=== PATIENT | male | born 1960 | race African-American/Black ===

== ENCOUNTER 2017-07-22 21:59 | Emergency (ER) | payer OTHER ==
[~2017-07-22] VITALS: Ht 170.2 cm; Wt 91.0 kg
[2017-07-23 04:45] VITALS: BP 110/70
== END 2017-07-23 05:30 | disposition left against medical advice (07) ==
LOC: ER 22:21
DX: R11.10 Vomiting, unspecified (principal); F10.129 Alcohol abuse with intoxication, unspecified; G40.909 Epilepsy, unspecified, not intractable, without status epilepticus; F17.200 Nicotine dependence, unspecified, uncomplicated; F12.10 Cannabis abuse, uncomplicated
CPT/HCPCS: 99283; Z7610

== ENCOUNTER 2017-08-25 09:34 | Emergency (ER) | payer OTHER | END 2017-08-25 10:32 | disposition left against medical advice (07) | LOC: ER 09:34 | DX: Z53.21 Procedure and treatment not carried out due to patient leaving prior to being seen by health care provider (principal) ==

== ENCOUNTER 2017-11-01 12:12 | Emergency (ER) | payer OTHER ==
[~2017-11-01] VITALS: Ht 175.3 cm; Wt 75.0 kg
[2017-11-01] MEDS ORDERED: SODIUM CHLORIDE 0.9% 1,000 ML IV ONE (12:39)
[2017-11-01] MEDS ORDERED: IBUPROFEN 600MG TABLET PO ONE (12:45)
[2017-11-01] MEDS ORDERED: LORAZEPAM 2MG/ML CPJ IV ONE (12:45)
[2017-11-01] MEDS ORDERED: LEVETIRACETAM 500MG PREMIX 100 ML IV ONE (12:45)
[2017-11-01 13:04] LABS: BASOPHILS % 0.9 % (0.0-2.0); EOSINOPHILS % 0.8 % (0.0-5.0); HEMATOCRIT. 38.8 % (42.0-52.0); HEMOGLOBIN. 13.2 g/dL (14.0-18.0); MEAN CORPUSCULAR HEMOGLOBIN 35.3 pg (28.0-32.0); MEAN CORPUSCULAR VOLUME 103.9 fL (80.0-94.0); MEAN PLATELET VOLUME 7.9 fl (7.4-10.4); MONOCYTES % 9.4 % (2.0-8.0); NEUTROPHILS % 58.9 % (40.0-76.0); PLATELET 198 x1000/uL (130-400); RED BLOOD CELL COUNT 3.73 mill/uL (4.7-6.1)
[2017-11-01 13:08] LABS: CHLORIDE 104 mEq/L (98-107)
[2017-11-01 13:12] LABS: ETHANOL BLOOD 95 mg/dL
[2017-11-01 13:17] LABS: CREATINE KINASE 177 IU/L (39-308)
[2017-11-01 13:23] LABS: CARBAMAZEPINE < 0.5 ug/mL (4-12); PHENOBARBITAL < 2.1 ug/mL (15.0-40.0); VALPROIC ACID < 3.0 ug/mL (50-100)
[2017-11-01 21:35] VITALS: BP 124/85
== END 2017-11-01 21:45 | disposition home or self-care (01) ==
LOC: ER 12:13
DX: G40.909 Epilepsy, unspecified, not intractable, without status epilepticus (principal); S93.401A Sprain of unspecified ligament of right ankle, initial encounter; F10.10 Alcohol abuse, uncomplicated; Y90.4 Blood alcohol level of 80-99 mg/100 ml; R94.31 Abnormal electrocardiogram [ECG] [EKG]; F12.10 Cannabis abuse, uncomplicated; Z91.19 Patient's noncompliance with other medical treatment and regimen; W01.0XXA Fall on same level from slipping, tripping and stumbling without subsequent striking against object, initial encounter; Y93.89 Activity, other specified; Y92.488 Other paved roadways as the place of occurrence of the external cause
CPT/HCPCS: 36415; 73610; 80053; 80156; 80165; 80184; 80185; 82550; 84443; 84484; 85025; 93005; 96365; 96375; 99285; G0482; J1953; J2060; J7030

== ENCOUNTER 2018-05-29 09:33 | Emergency (ER) | payer OTHER ==
[~2018-05-29] VITALS: Ht 182.9 cm; Wt 90.0 kg
[2018-05-29] MEDS ORDERED: SODIUM CHLORIDE 0.9% 1,000 ML IV ONE (10:30)
[2018-05-29] MEDS ORDERED: LORAZEPAM 2MG/ML CPJ IV ONE (11:00)
[2018-05-29 11:49] LABS: CLARITY URINE CLEAR (CLEAR); COLOR URINE YELLOW (YELLOW); KETONES URINE NEGATIVE (NEGATIVE); LEUKOCYTE ESTERASE URINE TRACE (NEGATIVE); NITRITE URINE NEGATIVE (NEGATIVE); OCCULT BLOOD URINE NEGATIVE (NEGATIVE); PH URINE 6.5 (4.5-8.0); PROTEIN URINE 1+ (NEGATIVE); SPECIFIC GRAVITY URINE 1.013 (1.005-1.030)
[2018-05-29 11:49] LABS: BASOPHILS % 0.7 % (0.0-2.0); EOSINOPHILS % 1.3 % (0.0-5.0); HEMATOCRIT. 40.3 % (42.0-52.0); HEMOGLOBIN. 13.6 g/dL (14.0-18.0); LYMPHOCYTES % 61.1 % (20.0-50.0); MEAN CORPUSCULAR HEMOGLOBIN 34.8 pg (28.0-32.0); MEAN CORPUSCULAR VOLUME 103.4 fL (80.0-94.0); MONOCYTES % 10.3 % (2.0-8.0); NEUTROPHILS % 26.6 % (40.0-76.0); PLATELET 268 x1000/uL (130-400); RED CELL DISTRIBUTION WIDTH 13.5 % (11.6-14.6)
[2018-05-29 11:56] LABS: CHLORIDE 100 mEq/L (98-107)
[2018-05-29 12:03] LABS: ETHANOL BLOOD < 10 mg/dL
[2018-05-29 12:20] LABS: PHENCYCLIDINE URINE SCREEN NEGATIVE (NEGATIVE)
[2018-05-29 12:21] LABS: *BARBITURATES SCREEN URINE NEGATIVE (NEGATIVE); *BENZODIAZEPINES SCREEN URINE NEGATIVE (NEGATIVE); *COCAINE SCREEN URINE NEGATIVE (NEGATIVE); CANNABINOID URINE SCREEN NEGATIVE (NEGATIVE); METHADONE URINE SCREEN NEGATIVE (NEGATIVE); OPIATES URINE SCREEN NEGATIVE (NEGATIVE)
[2018-05-29 12:22] LABS: *AMPHETAMINES SCREEN URINE NEGATIVE (NEGATIVE)
[2018-05-29] MEDS ORDERED: PHENYTOIN SODIUM 500 MG in SODIUM CHLORIDE 0.9% 50 ML IV ONE (14:00)
[2018-05-30 13:55] VITALS: BP 111/69
== END 2018-05-30 13:56 | disposition home or self-care (01) ==
LOC: ER 09:57
DX: R56.9 Unspecified convulsions (principal); F17.200 Nicotine dependence, unspecified, uncomplicated
CPT/HCPCS: 36415; 70450; 80053; 80185; 80305; 81003; 85025; 85610; 87186; 96365; 96366; 96375; 99284; J1165; J2060; J7030; Z7610

== ENCOUNTER 2019-02-23 08:17 | Emergency (ER) | payer OTHER ==
[~2019-02-23] VITALS: Ht 172.7 cm; Wt 73.0 kg
[2019-02-23 10:36] VITALS: BP 137/82
== END 2019-02-23 10:39 | disposition home or self-care (01) ==
LOC: ER 08:17
DX: R56.9 Unspecified convulsions (principal)
CPT/HCPCS: 99283

== ENCOUNTER 2019-03-06 08:41 | Emergency (ER) | payer OTHER ==
[~2019-03-06] VITALS: Ht 182.9 cm; Wt 85.0 kg
[2019-03-06 08:59] VITALS: BP 140/80
== END 2019-03-06 10:59 | disposition home or self-care (01) ==
LOC: ER 08:41
DX: F10.129 Alcohol abuse with intoxication, unspecified (principal); Y90.9 Presence of alcohol in blood, level not specified; R03.0 Elevated blood-pressure reading, without diagnosis of hypertension; R90.82 White matter disease, unspecified; Z91.81 History of falling
CPT/HCPCS: 70450; 99284; Z7610

== ENCOUNTER 2019-03-17 12:42 | Emergency (ER) | payer OTHER ==
[~2019-03-17] VITALS: Ht 177.8 cm; Wt 82.0 kg
[2019-03-17 14:16] LABS: BASOPHILS % 1.3 % (0.0-2.0); EOSINOPHILS % 0.8 % (0.0-5.0); HEMATOCRIT. 36.7 % (42.0-52.0); HEMOGLOBIN. 12.6 g/dL (14.0-18.0); LYMPHOCYTES % 39.2 % (20.0-50.0); MEAN CORPUSCULAR HEMOGLOBIN 34.9 pg (28.0-32.0); MEAN CORPUSCULAR VOLUME 101.2 fL (80.0-94.0); MEAN PLATELET VOLUME 7.5 fl (7.4-10.4); MONOCYTES % 12.2 % (2.0-8.0); NEUTROPHILS % 46.5 % (40.0-76.0); PLATELET 365 x1000/uL (130-400); RED BLOOD CELL COUNT 3.62 mill/uL (4.7-6.1); RED CELL DISTRIBUTION WIDTH 14.7 % (11.6-14.6)
[2019-03-17 14:23] LABS: CHLORIDE 103 mEq/L (98-107)
[2019-03-17 15:33] LABS: ETHANOL BLOOD < 10 mg/dL
[2019-03-17] MEDS ORDERED: PHENYTOIN 100 MG/4 ML UDC PO ONE (15:45)
[2019-03-17] MEDS ORDERED: PHENYTOIN SODIUM EXTENDED 100MG CAPSULE PO ONE (15:45)
[2019-03-18 11:25] VITALS: BP 98/62
== END 2019-03-18 11:30 | disposition home or self-care (01) ==
LOC: ER 12:42
DX: G40.909 Epilepsy, unspecified, not intractable, without status epilepticus (principal)
CPT/HCPCS: 36415; 80185; 80320; 99283; G0480

== ENCOUNTER 2019-04-04 11:45 | Emergency (ER) | payer OTHER ==
[~2019-04-04] VITALS: Ht 175.3 cm; Wt 82.0 kg
[2019-04-04 13:10] LABS: CLARITY URINE CLEAR (CLEAR); COLOR URINE YELLOW (YELLOW); KETONES URINE NEGATIVE (NEGATIVE); LEUKOCYTE ESTERASE URINE TRACE (NEGATIVE); NITRITE URINE NEGATIVE (NEGATIVE); OCCULT BLOOD URINE NEGATIVE (NEGATIVE); PROTEIN URINE NEGATIVE (NEGATIVE); SPECIFIC GRAVITY URINE 1.002 (1.005-1.030); UROBILINOGEN URINE 0.2 E.U./dL (0.2-1.0)
[2019-04-04 13:27] LABS: *AMPHETAMINES SCREEN URINE NEGATIVE (NEGATIVE); *BARBITURATES SCREEN URINE NEGATIVE (NEGATIVE); *BENZODIAZEPINES SCREEN URINE NEGATIVE (NEGATIVE); *COCAINE SCREEN URINE NEGATIVE (NEGATIVE); CANNABINOID URINE SCREEN NEGATIVE (NEGATIVE); METHADONE URINE SCREEN NEGATIVE (NEGATIVE); OPIATES URINE SCREEN NEGATIVE (NEGATIVE); PHENCYCLIDINE URINE SCREEN NEGATIVE (NEGATIVE)
[2019-04-04 14:31] LABS: BASOPHILS % 0.8 % (0.0-2.0); EOSINOPHILS % 1.6 % (0.0-5.0); HEMATOCRIT. 38.5 % (42.0-52.0); HEMOGLOBIN. 13.5 g/dL (14.0-18.0); MEAN CORPUSCULAR VOLUME 100.3 fL (80.0-94.0); MEAN PLATELET VOLUME 7.7 fl (7.4-10.4); MONOCYTES % 9.7 % (2.0-8.0); NEUTROPHILS % 67.9 % (40.0-76.0); PLATELET 268 x1000/uL (130-400); RED BLOOD CELL COUNT 3.84 mill/uL (4.7-6.1); RED CELL DISTRIBUTION WIDTH 13.4 % (11.6-14.6)
[2019-04-04 14:35] LABS: CHLORIDE 94 mEq/L (98-107)
[2019-04-04 14:38] LABS: ETHANOL BLOOD < 10 mg/dL
[2019-04-04] MEDS ORDERED: PHENYTOIN SODIUM 1,000 MG in SODIUM CHLORIDE 0.9% 100 ML IV ONE (15:30)
[2019-04-04 15:54] VITALS: BP 123/71
[2019-04-04] MEDS ORDERED: PHENYTOIN SODIUM EXTENDED 100MG CAPSULE PO ONE (16:00)
== END 2019-04-04 17:49 | disposition home or self-care (01) ==
LOC: ER 12:07
DX: F10.229 Alcohol dependence with intoxication, unspecified (principal); R89.2 Abnormal level of other drugs, medicaments and biological substances in specimens from other organs, systems and tissues; Y90.0 Blood alcohol level of less than 20 mg/100 ml
CPT/HCPCS: 36415; 80185; 80305; 80320; 81003; 99283; J1165; J7050; G0480

== ENCOUNTER 2019-04-06 19:15 | Inpatient (IN) | payer OTHER ==
[~2019-04-06] VITALS: Ht 172.7 cm; Wt 75.4 kg
[2019-04-06] MEDS ORDERED: SODIUM CHLORIDE 0.9% 1,000 ML IV ONE (20:20)
[2019-04-06] MEDS ORDERED: LEVETIRACETAM 500MG PREMIX 100 ML IV ONE (20:30)
[2019-04-06] MEDS ORDERED: FOLIC ACID 1 MG, THIAMINE HCL 100 MG, MVI, ADULT NO.1 10 ML in DEXTROSE 5% WATER 1,000 ML IV ONE ×4 (20:30)
[2019-04-06] MEDS ORDERED: LORAZEPAM 2MG/ML CPJ IV PRN (20:30)
[2019-04-06] MEDS ORDERED: LORAZEPAM 2MG/ML CPJ IM ONE (21:30)
[2019-04-06] MEDS ORDERED: OLANZAPINE 10 MG/VIAL IM ONE (21:30)
[2019-04-06 22:16] LABS: CLARITY URINE CLOUDY (CLEAR); COLOR URINE YELLOW (YELLOW); KETONES URINE NEGATIVE (NEGATIVE); LEUKOCYTE ESTERASE URINE 2+ (NEGATIVE); NITRITE URINE NEGATIVE (NEGATIVE); OCCULT BLOOD URINE NEGATIVE (NEGATIVE); PH URINE 5.5 (4.5-8.0); PROTEIN URINE NEGATIVE (NEGATIVE); UROBILINOGEN URINE 0.2 E.U./dL (0.2-1.0)
[2019-04-06 22:27] LABS: *BARBITURATES SCREEN URINE NEGATIVE (NEGATIVE)
[2019-04-06 22:28] LABS: *AMPHETAMINES SCREEN URINE NEGATIVE (NEGATIVE); *BENZODIAZEPINES SCREEN URINE NEGATIVE (NEGATIVE); *COCAINE SCREEN URINE NEGATIVE (NEGATIVE); METHADONE URINE SCREEN NEGATIVE (NEGATIVE); OPIATES URINE SCREEN NEGATIVE (NEGATIVE); PHENCYCLIDINE URINE SCREEN NEGATIVE (NEGATIVE)
[2019-04-06 22:29] LABS: CANNABINOID URINE SCREEN NEGATIVE (NEGATIVE)
[2019-04-06 23:47] LABS: BASOPHILS % 1.2 % (0.0-2.0); EOSINOPHILS % 1.8 % (0.0-5.0); HEMATOCRIT. 30.1 % (42.0-52.0); HEMOGLOBIN. 10.4 g/dL (14.0-18.0); LYMPHOCYTES % 53.7 % (20.0-50.0); MEAN CORPUSCULAR HEMOGLOBIN 35.4 pg (28.0-32.0); MEAN CORPUSCULAR VOLUME 102.4 fL (80.0-94.0); MEAN PLATELET VOLUME 7.3 fl (7.4-10.4); MONOCYTES % 7.7 % (2.0-8.0); NEUTROPHILS % 35.6 % (40.0-76.0); PLATELET 223 x1000/uL (130-400); RED BLOOD CELL COUNT 2.94 mill/uL (4.7-6.1); RED CELL DISTRIBUTION WIDTH 13.9 % (11.6-14.6)
[2019-04-07] VITALS (9 sets, daily range): BP systolic 90–137; BP diastolic 52–84
[2019-04-07] MEDS ORDERED: CEFTRIAXONE 1 G PREMIX 50 ML IV ONE
[2019-04-07 00:05] LABS: CHLORIDE 103 mEq/L (98-107)
[2019-04-07 00:10] LABS: ETHANOL BLOOD 157 mg/dL
[2019-04-07 00:14] LABS: CREATINE KINASE 191 IU/L (39-308)
[2019-04-07 00:21] LABS: CARBAMAZEPINE < 0.5 ug/mL (4-12); PHENOBARBITAL < 2.1 ug/mL (15.0-40.0); VALPROIC ACID < 3.0 ug/mL (50-100)
[2019-04-07] MEDS ORDERED: LEVETIRACETAM 500 MG in SODIUM CHLORIDE 0.9% 100 ML IV SCH (05:30)
[2019-04-07] MEDS ORDERED: LORAZEPAM 2MG/ML CPJ IV PRN (05:30)
[2019-04-07] MEDS ORDERED: ACETAMINOPHEN 325MG TABLET PO PRN (05:30)
[2019-04-07] MEDS: SODIUM CHLORIDE 0.9% 1,000 ML IV SCH ×2 (05:30→16:18)
[2019-04-07] MEDS ORDERED: ONDANSETRON HCL 4MG/2ML INJ IV PRN (05:30)
[2019-04-07] MEDS: CHLORDIAZEPOXIDE 5 MG CAPSULE PO SCH ×3 (06:00→20:52)
[2019-04-07] MEDS: MULTIVITAMINS,THER W-MINERALS TABLET PO SCH (09:00)
[2019-04-07] MEDS: ENOXAPARIN 40MG/0.4ML SYR SUBCUT SCH (09:00)
[2019-04-07] MEDS: THIAMINE HCL 100MG TABLET PO SCH (09:00)
[2019-04-07] MEDS: FOLIC ACID 1MG TABLET PO SCH (09:00)
[2019-04-07] MEDS: LEVETIRACETAM 500MG PREMIX 100 ML IV SCH ×2 (09:25→20:51)
[2019-04-07 10:28] LABS: BASOPHILS % 1.1 % (0.0-2.0); EOSINOPHILS % 1.9 % (0.0-5.0); HEMOGLOBIN. 11.7 g/dL (14.0-18.0); LYMPHOCYTES % 40.7 % (20.0-50.0); MEAN CORPUSCULAR HEMOGLOBIN 34.9 pg (28.0-32.0); MEAN PLATELET VOLUME 7.3 fl (7.4-10.4); MONOCYTES % 12.7 % (2.0-8.0); NEUTROPHILS % 43.6 % (40.0-76.0); PLATELET 235 x1000/uL (130-400); RED BLOOD CELL COUNT 3.34 mill/uL (4.7-6.1); RED CELL DISTRIBUTION WIDTH 14.2 % (11.6-14.6)
[2019-04-07 10:35] LABS: CHLORIDE 105 mEq/L (98-107)
[2019-04-07 10:43] LABS: LDL CHOLESTEROL 71 mg/dL (5-100)
[2019-04-07 10:44] LABS: CREATINE KINASE 222 IU/L (39-308)
[2019-04-07 10:45] LABS: CREATINE KINASE MB FRACTION 5.6 ng/mL (0.5-3.6); HDL CHOLESTEROL 58 mg/dL (40-59)
[2019-04-07 20:39] LABS: CREATINE KINASE 182 IU/L (39-308)
[2019-04-07 20:40] LABS: CREATINE KINASE MB FRACTION 4.1 ng/mL (0.5-3.6)
[2019-04-07 20:41] LABS: *AMPHETAMINES SCREEN URINE NEGATIVE (NEGATIVE); *BARBITURATES SCREEN URINE NEGATIVE (NEGATIVE); CANNABINOID URINE SCREEN NEGATIVE (NEGATIVE); METHADONE URINE SCREEN NEGATIVE (NEGATIVE); OPIATES URINE SCREEN NEGATIVE (NEGATIVE); PHENCYCLIDINE URINE SCREEN NEGATIVE (NEGATIVE)
[2019-04-07 20:42] LABS: *BENZODIAZEPINES SCREEN URINE NEGATIVE (NEGATIVE); *COCAINE SCREEN URINE NEGATIVE (NEGATIVE)
[2019-04-08] VITALS (11 sets, daily range): BP systolic 104–122; BP diastolic 58–84
[2019-04-08] MEDS: SODIUM CHLORIDE 0.9% 1,000 ML IV SCH ×3 (01:30→20:54)
[2019-04-08] MEDS: CHLORDIAZEPOXIDE 5 MG CAPSULE PO SCH ×3 (07:19→20:53)
[2019-04-08] MEDS: MULTIVITAMINS,THER W-MINERALS TABLET PO SCH (08:44)
[2019-04-08] MEDS: ENOXAPARIN 40MG/0.4ML SYR SUBCUT SCH (08:45)
[2019-04-08] MEDS: LEVETIRACETAM 500MG PREMIX 100 ML IV SCH (08:45)
[2019-04-08] MEDS: THIAMINE HCL 100MG TABLET PO SCH (08:45)
[2019-04-08] MEDS: FOLIC ACID 1MG TABLET PO SCH (08:45)
[2019-04-08] MEDS: PHENYTOIN SODIUM EXTENDED 100MG CAPSULE PO SCH ×2 (13:59→20:54)
[2019-04-09] VITALS (12 sets, daily range): BP systolic 94–131; BP diastolic 29–89
[2019-04-09] MEDS: PHENYTOIN SODIUM EXTENDED 100MG CAPSULE PO SCH (06:05)
[2019-04-09] MEDS: CHLORDIAZEPOXIDE 5 MG CAPSULE PO SCH ×3 (06:06→21:00)
[2019-04-09 07:39] LABS: BASOPHILS % 0.7 % (0.0-2.0); EOSINOPHILS % 2.1 % (0.0-5.0); HEMATOCRIT. 30.8 % (42.0-52.0); HEMOGLOBIN. 10.6 g/dL (14.0-18.0); LYMPHOCYTES % 44.9 % (20.0-50.0); MEAN CORPUSCULAR HEMOGLOBIN 35.3 pg (28.0-32.0); MEAN CORPUSCULAR VOLUME 102.4 fL (80.0-94.0); MEAN PLATELET VOLUME 7.5 fl (7.4-10.4); MONOCYTES % 11.5 % (2.0-8.0); NEUTROPHILS % 40.8 % (40.0-76.0); PLATELET 223 x1000/uL (130-400); RED BLOOD CELL COUNT 3.01 mill/uL (4.7-6.1); RED CELL DISTRIBUTION WIDTH 14.2 % (11.6-14.6)
[2019-04-09 07:50] LABS: CHLORIDE 107 mEq/L (98-107)
[2019-04-09] MEDS: THIAMINE HCL 100MG TABLET PO SCH (08:59)
[2019-04-09] MEDS: FOLIC ACID 1MG TABLET PO SCH (08:59)
[2019-04-09] MEDS: MULTIVITAMINS,THER W-MINERALS TABLET PO SCH (08:59)
[2019-04-09] MEDS: ENOXAPARIN 40MG/0.4ML SYR SUBCUT SCH (09:00)
[2019-04-09] MEDS ORDERED: ENOXAPARIN 40MG/0.4ML SYR SUBCUT NR (10:30)
[2019-04-09 14:27] LABS: FOLIC ACID (FOLATE) SERUM >20 ng/mL ng/mL (>5.38)
[2019-04-09 14:37] LABS: VITAMIN B12 SERUM 289 pg/mL (211-911)
[2019-04-09 15:53] LABS: FERRITIN 86 ng/mL (22-322)
[2019-04-09] MEDS: SODIUM CHLORIDE 0.9% 1,000 ML IV SCH ×2 (18:08→18:10)
[2019-04-09] MEDS: LEVETIRACETAM 500MG TABLET PO SCH (21:00)
[2019-04-09] MEDS: ENOXAPARIN 80MG/0.8ML SYR SUBCUT SCH (21:00)
[2019-04-10] VITALS (7 sets, daily range): BP systolic 92–108; BP diastolic 52–71
[2019-04-10] MEDS: CHLORDIAZEPOXIDE 5 MG CAPSULE PO SCH ×3 (06:20→21:21)
[2019-04-10 08:07] LABS: PROTHROMBIN TIME 10.1 sec (9.6-11.0)
[2019-04-10] MEDS: LEVETIRACETAM 500MG TABLET PO SCH ×2 (10:12→21:21)
[2019-04-10] MEDS: FOLIC ACID 1MG TABLET PO SCH (10:13)
[2019-04-10] MEDS: MULTIVITAMINS,THER W-MINERALS TABLET PO SCH (10:13)
[2019-04-10] MEDS: THIAMINE HCL 100MG TABLET PO SCH (10:13)
[2019-04-10] MEDS: ENOXAPARIN 80MG/0.8ML SYR SUBCUT SCH ×2 (10:13→21:22)
[2019-04-10] MEDS: SODIUM CHLORIDE 0.9% 1,000 ML IV SCH (12:16)
[2019-04-11] VITALS: BP 104/66
[2019-04-11] MEDS: SODIUM CHLORIDE 0.9% 1,000 ML IV SCH ×2 (00:18→08:59)
[2019-04-11 04:00] VITALS: BP 117/48
[2019-04-11] MEDS: CHLORDIAZEPOXIDE 25MG CAPSULE PO SCH ×3 (06:27→21:03)
[2019-04-11 07:14] LABS: BASOPHILS % 0.8 % (0.0-2.0); EOSINOPHILS % 2.5 % (0.0-5.0); HEMATOCRIT. 31.1 % (42.0-52.0); HEMOGLOBIN. 10.9 g/dL (14.0-18.0); LYMPHOCYTES % 38.9 % (20.0-50.0); MEAN CORPUSCULAR HEMOGLOBIN 35.6 pg (28.0-32.0); MEAN CORPUSCULAR VOLUME 101.7 fL (80.0-94.0); MEAN PLATELET VOLUME 7.5 fl (7.4-10.4); NEUTROPHILS % 46.8 % (40.0-76.0); PLATELET 217 x1000/uL (130-400); RED BLOOD CELL COUNT 3.06 mill/uL (4.7-6.1); RED CELL DISTRIBUTION WIDTH 14.4 % (11.6-14.6)
[2019-04-11 07:24] LABS: CHLORIDE 109 mEq/L (98-107)
[2019-04-11 08:00] VITALS: BP 118/79
[2019-04-11] MEDS: FOLIC ACID 1MG TABLET PO SCH (08:59)
[2019-04-11] MEDS: ENOXAPARIN 80MG/0.8ML SYR SUBCUT SCH ×2 (08:59→21:04)
[2019-04-11] MEDS: MULTIVITAMINS,THER W-MINERALS TABLET PO SCH (08:59)
[2019-04-11] MEDS: LEVETIRACETAM 500MG TABLET PO SCH ×2 (08:59→21:03)
[2019-04-11] MEDS: THIAMINE HCL 100MG TABLET PO SCH (08:59)
[2019-04-11 12:00] VITALS: BP 101/71
[2019-04-11 16:00] VITALS: BP 94/59
[2019-04-11 20:00] VITALS: BP 95/56
[2019-04-12] VITALS: BP 93/63
[2019-04-12 04:00] VITALS: BP 110/69
[2019-04-12] MEDS: CHLORDIAZEPOXIDE 25MG CAPSULE PO SCH (05:38)
[2019-04-12 08:00] VITALS: BP 111/66
[2019-04-12 08:08] LABS: HEMATOCRIT. 31.9 % (42.0-52.0); HEMOGLOBIN. 10.9 g/dL (14.0-18.0); MEAN CORPUSCULAR HEMOGLOBIN 35.1 pg (28.0-32.0); MEAN CORPUSCULAR VOLUME 102.5 fL (80.0-94.0); MEAN PLATELET VOLUME 7.7 fl (7.4-10.4); PLATELET 232 x1000/uL (130-400); RED BLOOD CELL COUNT 3.11 mill/uL (4.7-6.1); RED CELL DISTRIBUTION WIDTH 14.6 % (11.6-14.6)
[2019-04-12 08:28] LABS: CHLORIDE 109 mEq/L (98-107)
[2019-04-12] MEDS: THIAMINE HCL 100MG TABLET PO SCH (09:35)
[2019-04-12] MEDS: ENOXAPARIN 80MG/0.8ML SYR SUBCUT SCH ×2 (09:35→21:06)
[2019-04-12] MEDS: FOLIC ACID 1MG TABLET PO SCH (09:35)
[2019-04-12] MEDS: LEVETIRACETAM 500MG TABLET PO SCH ×2 (09:35→21:05)
[2019-04-12] MEDS: MULTIVITAMINS,THER W-MINERALS TABLET PO SCH (09:35)
[2019-04-12 12:00] VITALS: BP 96/61
[2019-04-12 13:32] LABS: PLATELET ESTIMATE NORMAL
[2019-04-12 16:11] VITALS: BP 93/55
[2019-04-12 20:00] VITALS: BP 99/65
[2019-04-13] VITALS: BP 92/59
[2019-04-13 04:00] VITALS: BP 97/60
[2019-04-13 08:01] LABS: EOSINOPHILS % 2.6 % (0.0-5.0); HEMATOCRIT. 34.4 % (42.0-52.0); HEMOGLOBIN. 11.8 g/dL (14.0-18.0); LYMPHOCYTES % 49.6 % (20.0-50.0); MEAN CORPUSCULAR HEMOGLOBIN 35.3 pg (28.0-32.0); MEAN PLATELET VOLUME 7.8 fl (7.4-10.4); MONOCYTES % 14.1 % (2.0-8.0); NEUTROPHILS % 32.7 % (40.0-76.0); PLATELET 234 x1000/uL (130-400); RED BLOOD CELL COUNT 3.34 mill/uL (4.7-6.1); RED CELL DISTRIBUTION WIDTH 14.5 % (11.6-14.6)
[2019-04-13 08:16] LABS: CHLORIDE 106 mEq/L (98-107)
[2019-04-13] MEDS: THIAMINE HCL 100MG TABLET PO SCH (10:13)
[2019-04-13] MEDS: FOLIC ACID 1MG TABLET PO SCH (10:13)
[2019-04-13] MEDS: LEVETIRACETAM 500MG TABLET PO SCH ×2 (10:13→21:22)
[2019-04-13] MEDS: MULTIVITAMINS,THER W-MINERALS TABLET PO SCH (10:13)
[2019-04-13] MEDS: ENOXAPARIN 80MG/0.8ML SYR SUBCUT SCH (10:19)
[2019-04-13 20:00] VITALS: BP 93/57
[2019-04-14] VITALS: BP 95/49
[2019-04-14 04:00] VITALS: BP 105/63
[2019-04-14 08:00] VITALS: BP 95/55
[2019-04-14] MEDS: LEVETIRACETAM 500MG TABLET PO SCH ×2 (08:45→21:44)
[2019-04-14] MEDS: MULTIVITAMINS,THER W-MINERALS TABLET PO SCH (08:45)
[2019-04-14] MEDS: THIAMINE HCL 100MG TABLET PO SCH (08:45)
[2019-04-14] MEDS: FOLIC ACID 1MG TABLET PO SCH (08:45)
[2019-04-14 12:00] VITALS: BP 97/54
[2019-04-14 16:00] VITALS: BP 98/55
[2019-04-14 20:00] VITALS: BP 103/65
[2019-04-15] VITALS: BP 98/61
[2019-04-15 04:00] VITALS: BP 91/52
[2019-04-15 08:00] VITALS: BP 92/56
[2019-04-15] MEDS: LEVETIRACETAM 500MG TABLET PO SCH (10:11)
[2019-04-15] MEDS: MULTIVITAMINS,THER W-MINERALS TABLET PO SCH (10:12)
[2019-04-15] MEDS: THIAMINE HCL 100MG TABLET PO SCH (10:12)
[2019-04-15] MEDS: FOLIC ACID 1MG TABLET PO SCH (10:12)
[2019-04-15 12:00] VITALS: BP 91/70
[2019-04-15 16:00] VITALS: BP 107/74
== END 2019-04-15 17:25 | disposition home or self-care (01) | DRG 53 ==
LOC: ER 19:15 → 5EST 23:48 → EDBEDREQ 23:52 → EDBEDREQTM 23:52 → ENRESERV 04-07 02:20 → 5WST 04-10 06:00
PROVIDERS: ADMIT Internal Medicine; ATTEND Internal Medicine
PROC: 05HY33Z Insertion of Infusion Device into Upper Vein, Percutaneous Approach (ICD-10-PCS; principal; 2019-04-06)
PROC: B543ZZA Ultrasonography of Right Jugular Veins, Guidance (ICD-10-PCS; 2019-04-06)
DX: G40.909 Epilepsy, unspecified, not intractable, without status epilepticus (principal); E46 Unspecified protein-calorie malnutrition; D70.9 Neutropenia, unspecified; K74.60 Unspecified cirrhosis of liver; D53.9 Nutritional anemia, unspecified; F10.229 Alcohol dependence with intoxication, unspecified; N39.0 Urinary tract infection, site not specified; E53.8 Deficiency of other specified B group vitamins; F10.239 Alcohol dependence with withdrawal, unspecified; I82.432 Acute embolism and thrombosis of left popliteal vein; F12.10 Cannabis abuse, uncomplicated; F14.10 Cocaine abuse, uncomplicated; R26.89 Other abnormalities of gait and mobility; Z68.25 Body mass index [BMI] 25.0-25.9, adult; Z79.899 Other long term (current) drug therapy; Z59.0 Homelessness; Z91.14 Patient's other noncompliance with medication regimen; Z91.19 Patient's noncompliance with other medical treatment and regimen; Z91.81 History of falling
CPT/HCPCS: 36415; 71045; 80048; 80053; 80061; 80156; 80165; 80184; 80185; 80305; 80320; 81003; 82140; 82550; 82553; 82607; 82728; 82746; 83540; 83550; 83605; 83735; 84443; 84484; 85025; 92610; 93005; 93306; 93970; 97162; 97165; 99291; C1893; J0696; J1650; J1953; J2060; J3411; J3490; J7030; J7070; G0480

== ENCOUNTER 2019-04-26 20:13 | Emergency (ER) | payer OTHER ==
[~2019-04-26] VITALS: Ht 177.8 cm; Wt 82.0 kg
[2019-04-27] MEDS ORDERED: ONDANSETRON HCL 4MG/2ML INJ IV STA (00:44)
[2019-04-27] MEDS ORDERED: PHENYTOIN SODIUM EXTENDED 100MG CAPSULE PO ONE (00:45)
[2019-04-27] MEDS ORDERED: FOLIC ACID 1 MG, THIAMINE HCL 100 MG, MVI, ADULT NO.1 10 ML in DEXTROSE 5% WATER 1,000 ML IV ONE ×4 (00:45)
[2019-04-27] MEDS ORDERED: MAGNESIUM 2 G PREMIX 50 ML IV ONE (00:45)
[2019-04-27 01:11] LABS: BASOPHILS % 1.3 % (0.0-2.0); CHLORIDE 111 mEq/L (98-107); HEMATOCRIT. 35.7 % (42.0-52.0); HEMOGLOBIN. 12.1 g/dL (14.0-18.0); LYMPHOCYTES % 55.3 % (20.0-50.0); MEAN CORPUSCULAR HEMOGLOBIN 34.9 pg (28.0-32.0); MEAN CORPUSCULAR VOLUME 102.5 fL (80.0-94.0); MEAN PLATELET VOLUME 8.4 fl (7.4-10.4); MONOCYTES % 9.9 % (2.0-8.0); NEUTROPHILS % 31.5 % (40.0-76.0); PLATELET 336 x1000/uL (130-400); RED BLOOD CELL COUNT 3.48 mill/uL (4.7-6.1); RED CELL DISTRIBUTION WIDTH 14.6 % (11.6-14.6)
[2019-04-27 01:16] LABS: ETHANOL BLOOD 83 mg/dL
[2019-04-27 05:29] VITALS: BP 102/55
== END 2019-04-27 05:57 | disposition home or self-care (01) ==
LOC: ER 20:13
DX: R56.9 Unspecified convulsions (principal); F17.290 Nicotine dependence, other tobacco product, uncomplicated; F10.20 Alcohol dependence, uncomplicated; Y90.4 Blood alcohol level of 80-99 mg/100 ml
CPT/HCPCS: 36415; 71045; 80053; 80185; 80320; 85025; 93005; 96365; 96367; 96375; 99284; J2405; J3411; J3475; J3490; J7070; Z7610; G0480

== ENCOUNTER 2019-05-12 11:23 | Emergency (ER) | payer OTHER ==
[~2019-05-12] VITALS: Ht 177.8 cm; Wt 82.0 kg
[2019-05-12 11:28] VITALS: BP 119/67
== END 2019-05-12 12:12 | disposition home or self-care (01) ==
LOC: ER 11:23
DX: G40.909 Epilepsy, unspecified, not intractable, without status epilepticus (principal); F10.10 Alcohol abuse, uncomplicated; Y90.9 Presence of alcohol in blood, level not specified
CPT/HCPCS: 99283